=== PATIENT | female | born 1960 | race Caucasian/White ===

== ENCOUNTER 2020-11-20 08:48 | Day surgery (SDC) | payer OTHER ==
[2020-11-18 16:58] VITALS: BMI 22.3
[2020-11-20] MEDS ORDERED: MIDAZOLAM HCL 2 MG/2 ML SINGLE DOSE VIAL ONE ×2 (09:10→09:11)
[2020-11-20] MEDS ORDERED: PROMETHAZINE HCL 25 MG/1 ML VIAL IVPUSH PRN (10:05)
[2020-11-20] MEDS ORDERED: oxyCODONE HCL 5 MG TABLET PO PRN (10:05)
[2020-11-20] MEDS ORDERED: ceFAZolin SODIUM 1 GM VIAL ONE (10:08)
[2020-11-20] MEDS ORDERED: PROPOFOL 20 ML ONE (10:08)
[2020-11-20] MEDS ORDERED: SODIUM CHLORIDE 0.9% P/F 10 ML VIAL IJ ONE (10:09)
[2020-11-20] MEDS ORDERED: LACTATED RINGERS SOLUTION 1,000 ML IV SCH (10:15)
[2020-11-20] MEDS ORDERED: LIDOCAINE HCL 2% (20ML MULTI-DOSE VIAL) ONE (10:26)
[2020-11-20 12:13] VITALS: TEMP 98.2
[2020-11-20 12:49] VITALS: BP 98/64; PULSE 80
== END 2020-11-20 12:30 | disposition home or self-care (01) ==
LOC: FASU 08:48
PROVIDERS: ATTEND Orthopaedic Surgery Hand Surgery
PROC: 0RQ Upper Joints, Repair (ICD-10-PCS; 2020-11-20)
PROC: 0LX80ZZ Transfer Left Hand Tendon, Open Approach (ICD-10-PCS; principal; 2020-11-20 10:38)
DX: M13.842 Other specified arthritis, left hand (principal)
CPT/HCPCS: 25447; 26480; C1713